=== PATIENT | female | born 1950 | race Caucasian/White ===

== ENCOUNTER 2021-04-28 13:08 | Inpatient (IN) | payer OTHER ==
[~2021-04-28] VITALS: Ht 139.7 cm; Wt 56.7 kg
[~2021-04-28 13:08] MED LIST: AUGMENTIN 875-1 EACH PO; FLAGYL500 MG PO; ZOFRAN ODT 4 MG4 MG PO
[2021-04-28 14:18] LABS: HEMOGLOBIN 16.3 gm/dl (12.3-15.3); RED BLOOD COUNT 5.29 M/UL (4.00-5.10); WHITE BLOOD COUNT 8.2 K/UL (4.5-11.0)
[2021-04-28 14:42] LABS: BUN/CREATININE RATIO 22 (0-10)
[2021-04-29 02:51] LABS: RED BLOOD COUNT 4.3 M/UL (4.00-5.10)
[2021-04-29 02:52] LABS: HEMOGLOBIN 13.1 gm/dl (12.3-15.3)
[2021-04-29 03:23] LABS: BUN/CREATININE RATIO 29 (0-10)
[2021-04-29] MEDS ORDERED: CLONAZEPAM1 MG PO (08:52)
[2021-04-29] MEDS ORDERED: HYDROCODON-ACE1 EAC6 PO (08:53)
[2021-04-29] MEDS ORDERED: AMLODIPINE BESYL5 MG PO (08:53)
[2021-04-29] MEDS ORDERED: TENORMIN 50 MG50 MG PO (08:54)
[2021-04-29] MEDS ORDERED: LOVASTATIN40 MG PO (08:54)
[2021-04-30 02:35] LABS: HEMOGLOBIN 12.4 gm/dl (12.3-15.3); RED BLOOD COUNT 4.1 M/UL (4.00-5.10)
[2021-04-30 02:52] LABS: BUN/CREATININE RATIO 36 (0-10)
[2021-04-30 03:11] LABS: WHITE BLOOD COUNT 7.5 K/UL (4.5-11.0)
[2021-05-01 02:38] LABS: HEMOGLOBIN 12.6 gm/dl (12.3-15.3); RED BLOOD COUNT 4.16 M/UL (4.00-5.10); WHITE BLOOD COUNT 7.1 K/UL (4.5-11.0)
[2021-05-01 03:05] LABS: BUN/CREATININE RATIO 50 (0-10)
[2021-05-02 03:29] LABS: HEMOGLOBIN 13.2 gm/dl (12.3-15.3); RED BLOOD COUNT 4.35 M/UL (4.00-5.10)
[2021-05-02 03:34] LABS: WHITE BLOOD COUNT 9.5 K/UL (4.5-11.0)
[2021-05-02 03:43] LABS: BUN/CREATININE RATIO 52 (0-10)
[2021-05-04 03:29] LABS: HEMOGLOBIN 12.7 gm/dl (12.3-15.3); RED BLOOD COUNT 4.13 M/UL (4.00-5.10)
[2021-05-04 03:32] LABS: WHITE BLOOD COUNT 12.5 K/UL (4.5-11.0)
[2021-05-04 03:39] LABS: BUN/CREATININE RATIO 55 (0-10)
[2021-05-05 04:57] LABS: HEMOGLOBIN 13.3 gm/dl (12.3-15.3); RED BLOOD COUNT 4.43 M/UL (4.00-5.10); WHITE BLOOD COUNT 13.8 K/UL (4.5-11.0)
[2021-05-05 05:32] LABS: BUN/CREATININE RATIO 62 (0-10)
[2021-05-06 04:15] LABS: HEMOGLOBIN 13.9 gm/dl (12.3-15.3); RED BLOOD COUNT 4.63 M/UL (4.00-5.10); WHITE BLOOD COUNT 16.7 K/UL (4.5-11.0)
[2021-05-06 07:10] LABS: BUN/CREATININE RATIO 89 (0-10)
--- NOTE | 2021-05-06 10:43 | NUR ---
CALLED AND GAVE MACHO REPORT AT THIS TIME NOTED PT GOING 2119
--- NOTE | 2021-05-06 14:57 | NUR ---
05/06/211431 PT DESATED TO THE 70'S AND HR WENT FROM 80'S TO 40'S. NO PULSE COULD BE PALPATED. CPR BEGAN. SEE CODE SHEET - FAMILY CONTACTED BY DR. Cortes WHO EXPLAINED THE SITUATION TO THE .
[2021-05-07 06:12] LABS: HEMOGLOBIN 15.1 gm/dl (12.3-15.3); RED BLOOD COUNT 5.09 M/UL (4.00-5.10)
[2021-05-07 06:15] LABS: WHITE BLOOD COUNT 36.7 K/UL (4.5-11.0)
--- NOTE | 2021-05-07 08:54 | NUR ---
0821: PATIENT ASYSTOLE AND NO PULSE IS DETECTED. CHEST COMPRESSIONS STARTED. DR. PHILIP AT THE BEDSIDE. 0823: FEMORAL PULSE AND CAROTID PULSE DETECTED, CHEST COMPRESSION ENDED. PACER PADS PLACED ON PATIENT AND PATIENT CONNECTED TO THE MONITOR ON [employer]. TONY MCCLOUD NOTIFIED AND UPDATED ON HER MEDICAL STATUS. PATIENT REMAINS A FULL CODE.
== END 2021-05-07 10:33 | disposition expired | DRG 208 ==
LOC: ER1 13:08 → PROG CARE 17:43 → CDU 17:43 → PROG CARE 23:00 → CCU 05-06 11:01
PROVIDERS: Family Medicine; Internal Medicine; Internal Medicine Pulmonary Disease; ADMIT Internal Medicine
PROC: 3E0333Z Introduction of Anti-inflammatory into Peripheral Vein, Percutaneous Approach (ICD-10-PCS; principal; 2021-04-28)
PROC: XW033E5 Introduction of Remdesivir Anti-infective into Peripheral Vein, Percutaneous Approach, New Technology Group 5 (ICD-10-PCS; 2021-04-28)
PROC: 8E0ZXY6 Isolation (ICD-10-PCS; 2021-04-28)
PROC: 5A09557 Assistance with Respiratory Ventilation, Greater than 96 Consecutive Hours, Continuous Positive Airway Pressure (ICD-10-PCS; 2021-04-28)
PROC: B24BZZZ Ultrasonography of Heart with Aorta (ICD-10-PCS; 2021-04-30)
PROC: 5A1935Z Respiratory Ventilation, Less than 24 Consecutive Hours (ICD-10-PCS; 2021-05-06)
PROC: 05HM33Z Insertion of Infusion Device into Right Internal Jugular Vein, Percutaneous Approach (ICD-10-PCS; 2021-05-06)
PROC: 0BH18EZ Insertion of Endotracheal Airway into Trachea, Via Natural or Artificial Opening Endoscopic (ICD-10-PCS; 2021-05-06)
PROC: 0DH67UZ Insertion of Feeding Device into Stomach, Via Natural or Artificial Opening (ICD-10-PCS; 2021-05-06)
PROC: 0W9930Z Drainage of Right Pleural Cavity with Drainage Device, Percutaneous Approach (ICD-10-PCS; 2021-05-06)
PROC: 05HM33Z Insertion of Infusion Device into Right Internal Jugular Vein, Percutaneous Approach (ICD-10-PCS; 2021-05-06)
PROC: 5A12012 Performance of Cardiac Output, Single, Manual (ICD-10-PCS; 2021-05-07)
DX: U07.1 COVID-19 (principal); J12.82 Pneumonia due to coronavirus disease 2019; J15.9 Unspecified bacterial pneumonia; A41.9 Sepsis, unspecified organism; R65.21 Severe sepsis with septic shock; J80 Acute respiratory distress syndrome; Z51.5 Encounter for palliative care; J18.9 Pneumonia, unspecified organism; K72.00 Acute and subacute hepatic failure without coma; J93.0 Spontaneous tension pneumothorax; I21.A1 Myocardial infarction type 2; I46.9 Cardiac arrest, cause unspecified; E87.2 Acidosis; N17.9 Acute kidney failure, unspecified; E87.1 Hypo-osmolality and hyponatremia; I10 Essential (primary) hypertension; E87.70 Fluid overload, unspecified; F11.90 Opioid use, unspecified, uncomplicated; J98.2 Interstitial emphysema; G89.29 Other chronic pain; E88.09 Other disorders of plasma-protein metabolism, not elsewhere classified; F41.9 Anxiety disorder, unspecified; E87.6 Hypokalemia; I25.10 Atherosclerotic heart disease of native coronary artery without angina pectoris; I48.0 Paroxysmal atrial fibrillation; E11.65 Type 2 diabetes mellitus with hyperglycemia; D64.9 Anemia, unspecified; I08.1 Rheumatic disorders of both mitral and tricuspid valves; Z95.5 Presence of coronary angioplasty implant and graft; Z82.49 Family history of ischemic heart disease and other diseases of the circulatory system; Z95.1 Presence of aortocoronary bypass graft; Z88.5 Allergy status to narcotic agent; Z79.01 Long term (current) use of anticoagulants
CPT/HCPCS: ECHO; 31500; 36415; 36600; 71045; 74018; 80048; 80053; 82009; 82550; 82553; 82803; 82962; 83036; 83605; 83735; 83880; 84132; 84484; 85025; 85027; 85379; 85610; 85652; 86140; 87040; 93005; 93306; 94002; 94640; 94660; 94760; 96372; 96374; 96375; 99285; J0171; J0456; J0461; J0692; J1100; J1205; J1335; J1650; J1940; J2060; J2250; J2270; J2370; J2930; J3010; J3370; J3480; J7030; J7050; J7070; Q9967; U0002